=== PATIENT | female | born 1955 | race American Indian/Alaskan Native ===

== ENCOUNTER 2016-09-13 08:23 | Outpatient (CLI) | payer OTHER ==
[2016-09-13 09:07] LABS: Blood Urea Nitrogen 10 mg/dL (7-17)
--- NOTE | 2016-09-13 11:24 | Cat Scan Report ---
CT scan of abdomen and pelvis without IV contrast: History: Left lower quadrant pain. Findings: Normal lung bases. No pleural pericardial effusion. Normal liver spleen pancreas. Patient status post cholecystectomy. Normal adrenals and kidney parenchyma. Normal bladder. Calcified fibroid in the uterus. No free intraperitoneal fluid or air. No evidence of adenopathy. Normal aorta. Normal appendix. No evidence of diverticulosis or diverticulitis. Gaseous colon with moderate volume stool in colon. Impression: Fibroid uterus. No evidence of appendicitis or diverticulitis. No evidence of hydronephrosis.
== END 2016-09-13 08:24 | disposition home or self-care (01) ==
LOC: CT 08:23
PROVIDERS: ATTEND Internal Medicine Gastroenterology
DX: D25.9 Leiomyoma of uterus, unspecified (principal); R10.32 Left lower quadrant pain; Z90.49 Acquired absence of other specified parts of digestive tract
CPT/HCPCS: 36415; 74176; 82565; 84520